=== PATIENT | male | born 1960 | race Two or more races ===

== ENCOUNTER 2019-04-01 10:58 | Emergency (ER) | payer OTHER, MEDICAID ==
[~2019-04-01] VITALS: Ht 172.7 cm; Wt 98.0 kg
[~2019-04-01 10:58] MED LIST: AMLO1CAP56; BENA10TA PO; INSU100I7
[2019-04-01 11:48] VITALS: BP 171/50
== END 2019-04-01 16:26 | disposition home or self-care (01) ==
LOC: ER 10:58
DX: Z48.00 Encounter for change or removal of nonsurgical wound dressing (principal); S31.010D Laceration without foreign body of lower back and pelvis without penetration into retroperitoneum, subsequent encounter; S41.0 Open wound of shoulder; E11.9 Type 2 diabetes mellitus without complications; I10 Essential (primary) hypertension
CPT/HCPCS: 99282